=== PATIENT | female | born 1965 | race Caucasian/White ===

== ENCOUNTER 2019-02-04 21:04 | Emergency (ER) | payer MEDICAID ==
[2019-02-04] MEDS ORDERED: IV NS 0.9% 1,000 ML BAG IV ONE (22:00)
[2019-02-04] MEDS ORDERED: KETOROLAC TROMETHAMINE INJ 30 MG/ML VIAL IV ONE (22:00)
[2019-02-04] MEDS ORDERED: MORPHINE SULFATE INJ 2 MG/ML DISP.SYRIN IV ONE (22:00)
[2019-02-04] MEDS ORDERED: ONDANSETRON HCL/PF 4 MG/2 ML VIAL IVP ONE (22:00)
[2019-02-04] MEDS ORDERED: KETOROLAC TROMETHAMINE 15 MG/ML VIAL ONE (22:03)
[2019-02-04] MEDS ORDERED: ONDANSETRON HCL/PF 4 MG/2 ML VIAL ONE (22:03)
[2019-02-04] MEDS ORDERED: MORPHINE SULFATE INJ 4 MG/ML DISP.SYRIN ONE (22:04)
[2019-02-05] MEDS ORDERED: LOPERAMIDE HCL (2 MG CAP) 2 MG CAPSULE PO ONE ×2 (07:00→07:22)
== END 2019-02-05 09:55 | disposition home or self-care (01) ==
DX: A08.4 Viral intestinal infection, unspecified (principal); R11.2 Nausea with vomiting, unspecified; F43.10 Post-traumatic stress disorder, unspecified
CPT/HCPCS: 36415; 74176; 80048; 80076; 83690; 85025; 87015; 87045; 87427 ×2; 87493; 96361; 96374; 96375; 99284; J1885; J2270; J2405; J7030

== ENCOUNTER 2020-02-29 17:53 | Emergency (ER) | payer MEDICAID ==
[~2020-02-29] VITALS: Ht 152.4 cm; Wt 80.7 kg
--- NOTE | 2020-02-29 18:00 | NUR ---
called NO response
[2020-02-29 18:32] VITALS: BP 147/97
[2020-02-29] MEDS ORDERED: ACETAMINOPHEN 325 MG TABLET ONE (18:50)
[2020-02-29] MEDS ORDERED: ACETAMINOPHEN 325 MG TABLET PO ONE (19:00)
== END 2020-02-29 19:46 | disposition home or self-care (01) ==
LOC: ER 18:07
DX: S03.2XXA Dislocation of tooth, initial encounter (principal); R51 Headache; M25.531 Pain in right wrist; M79.641 Pain in right hand; V23.4XXA Motorcycle driver injured in collision with car, pick-up truck or van in traffic accident, initial encounter; Y93.55 Activity, bike riding; Y92.413 State road as the place of occurrence of the external cause; Y99.8 Other external cause status
CPT/HCPCS: 73110; 73130-TC

== ENCOUNTER 2020-06-14 20:27 | Emergency (ER) | payer MEDICAID, OTHER | END 2020-06-15 01:03 | disposition left against medical advice (07) | LOC: ER 20:29 | DX: Z53.21 Procedure and treatment not carried out due to patient leaving prior to being seen by health care provider (principal) ==

== ENCOUNTER 2021-01-12 07:56 | Emergency (ER) | payer OTHER ==
[~2021-01-12] VITALS: Ht 154.9 cm; Wt 68.0 kg
--- NOTE | 2021-01-12 08:11 | NUR ---
TO ER BED 7, C/O BLE PAIN AND SWELLING X 4 DAYS, LOSS SENSE TASTE/SMELL X 2 DAYS, CHANGED TO GOWN AND ATTACHED TO MONITOR, MD AT BEDSIDE.
--- NOTE | 2021-01-12 08:34 | NUR ---
CALLED XRAY, TECH WAS PAGED
[2021-01-12 08:40] VITALS: BP 148/92
--- NOTE | 2021-01-12 08:54 | NUR ---
XRAY AT BEDSIDE
[2021-01-12] MEDS ORDERED: IBUP-1957 PO (09:17)
[2021-01-12] MEDS ORDERED: CYCL5TAB PO (09:17)
== END 2021-01-12 09:32 | disposition home or self-care (01) ==
LOC: ER 07:59
DX: M79.605 Pain in left leg (principal); M79.604 Pain in right leg; R43.8 Other disturbances of smell and taste; Z20.822 Contact with and (suspected) exposure to COVID-19; I10 Essential (primary) hypertension; M79.89 Other specified soft tissue disorders; Z87.11 Personal history of peptic ulcer disease; F17.200 Nicotine dependence, unspecified, uncomplicated
CPT/HCPCS: 87426; 93970; 99284; 99406; C9803

== ENCOUNTER 2024-05-08 03:22 | Emergency (ER) | payer OTHER ==
[~2024-05-08] VITALS: Ht 154.9 cm; Wt 65.8 kg
[~2024-05-08 03:22] MED LIST: CYCL5TAB PO; IBUP-1957 PO
[2024-05-08 03:52] VITALS: BP 158/94; TEMP 98.6
[2024-05-08 05:53] VITALS: O2SAT 98
== END 2024-05-08 06:20 | disposition home or self-care (01) ==
LOC: ER 03:30
DX: R07.89 Other chest pain (principal); I10 Essential (primary) hypertension; Z79.1 Long term (current) use of non-steroidal anti-inflammatories (NSAID)
CPT/HCPCS: 71100-TC

== ENCOUNTER 2024-10-27 04:26 | Emergency (ER) | payer OTHER ==
[~2024-10-27] VITALS: Ht 154.9 cm; Wt 61.2 kg
[2024-10-27 06:20] LABS: APPEARANCE,URINE SLIGHTLY CLOUDY (CLEAR); BILIRUBIN,URINE NEGATIVE (NEGATIVE); BLOOD, URINE NEGATIVE Ery/uL (NEGATIVE); COLOR,URINE YELLOW (YELLOW); KETONES,URINE NEGATIVE (NEGATIVE); LEUKOCYTE ESTERASE ,URINE 1+ (NEGATIVE); NITRITE, URINE NEGATIVE (NEGATIVE); PROTEIN,URINE NEGATIVE (NEGATIVE); UGLUCOSE NEGATIVE (NEGATIVE)
[2024-10-27 06:27] LABS: ADD URINE CULTURE YES; BACTERIA,URINE 1+ /HPF (None Seen); RBC,URINE 0-2 /HPF (0-2)
[2024-10-27 06:33] LABS: BASOPHILS % (AUTO) 0.2 % (0.0-2.0); EOSINOPHILS # (AUTO) 0.1 K/uL (0.0-0.7); EOSINOPHILS % (AUTO) 1.5 % (0.0-6.0); HEMATOCRIT 43 % (33-45); HEMOGLOBIN 14.4 g/dL (11.5-14.8); LYMPHOCYTES # (AUTO) 1.3 K/uL (0.8-4.8); LYMPHOCYTES % (AUTO) 16.6 % (20.0-44.0); MEAN CORPUSCULAR HEMOGLOBIN 30 PG (26.0-33.0); MEAN CORPUSCULAR HGB CONC 34 g/dl (31.0-36.0); MEAN CORPUSCULAR VOLUME 88 fL (82-100); MONOCYTES # (AUTO) 0.5 K/uL (0.1-1.30); MONOCYTES % (AUTO) 6.1 % (2.0-12.0); NEUTROPHILS # (AUTO) 5.9 K/uL (1.8-8.9); NEUTROPHILS % (AUTO) 75.6 % (43.0-81.0); PLATELET COUNT (AUTO) 256 K/uL (150-450); RED BLOOD CELL COUNT(AUTO) 4.83 MIL/uL (4.0-5.2); RED CELL DISTRIBUTION WIDTH 14.2 % (11.5-15.0); WHITE BLOOD COUNT (AUTO) 7.8 K/uL (4.3-11.0)
[2024-10-27] MEDS ORDERED: KETOROLAC TROMETHAMINE 15 MG/ML VIAL ONE (06:42)
[2024-10-27] MEDS ORDERED: FAMOTIDINE/PF INJ 20 MG/2 ML VIAL IV ONE (06:43)
[2024-10-27] MEDS ORDERED: PANTOPRAZOLE 40 MG VIAL ONE (06:43)
[2024-10-27] MEDS ORDERED: CEFTRIAXONE 1GM BAG (ER ONLY) 50 ML IV ONE (06:43)
[2024-10-27 06:48] LABS: ALBUMIN 3.5 g/dL (3.4-5.0); BILIRUBIN,DIRECT 0.1 mg/dL (0.0-0.2); BILIRUBIN,TOTAL 0.4 mg/dL (0.2-1.0); CALCIUM, SERUM 9.2 mg/dL (8.5-10.1); CREATININE 0.8 mg/dL (0.6-1.3); POTASSIUM 3.4 mmol/L (3.5-5.1); TOTAL PROTEIN, SERUM 7.5 g/dL (6.4-8.2)
[2024-10-27] MEDS: IV NS 0.9% 1,000 ML BAG IV ONE (06:50)
[2024-10-27] MEDS: FAMOTIDINE/PF INJ 20 MG/2 ML VIAL IV ONE (06:51)
[2024-10-27] MEDS: PANTOPRAZOLE 40 MG VIAL IV ONE (06:51)
[2024-10-27] MEDS: CEFTRIAXONE 1GM BAG (ER ONLY) 1 GM/50 ML PIGGYBACK IV ONE (06:52)
[2024-10-27] MEDS: KETOROLAC TROMETHAMINE 15 MG/ML VIAL IV ONE (06:52)
[2024-10-27] MEDS ORDERED: CEPH-570 PO (07:33)
[2024-10-27] MEDS ORDERED: CYCL5TAB PO (07:43)
[2024-10-27] MEDS ORDERED: IBUP-1957 PO (07:43)
[2024-10-27] MEDS ORDERED: ACETAMINOPHEN ES 500 MG TABLET ONE (07:54)
[2024-10-27] MEDS: ACETAMINOPHEN ES 500 MG TABLET PO ONE (07:56)
[2024-10-27 07:57] VITALS: BP 135/98; TEMP 98.5; O2SAT 99
== END 2024-10-27 07:59 | disposition home or self-care (01) ==
LOC: ER 04:30
DX: N39.0 Urinary tract infection, site not specified (principal); I10 Essential (primary) hypertension; Z79.1 Long term (current) use of non-steroidal anti-inflammatories (NSAID); Z79.899 Other long term (current) drug therapy; Z87.11 Personal history of peptic ulcer disease
CPT/HCPCS: 99284; 96365; 96375; 85025; 80048; 87086; 83690; 80076; 81001; 36415; J1885; J1308; J2470; J0696